=== PATIENT | female | born 1935 | race Caucasian/White ===

== ENCOUNTER → 2022-09-14 | Outpatient (CLI) | payer OTHER ==
[~2022-09-14] MED LIST: CYAN500 PO; ELIQUIS5 MG PO; ERGO400 PO; FAMO40 PO; MULVITA PO; Metoprolol Tart25 MG PO; OXYB5ER PO; TUMS500 MG PO
[2022-09-14 12:21] LABS: Source, Urine Clean Catch
[2022-09-14 17:55] LABS: Appearance, Urine Hazy (Clear); Bilirubin, Urine Neg (Neg); Blood, Urine 1+ (Neg); Color, Urine Yellow (P-Yellow); Glucose Qualitative, Urine Neg (Neg); Ketones, Urine Neg (Neg); Leukocyte Esterase, Urine 3+ (Neg); Nitrite, Urine Neg (Neg); Protein, Urine 2+ (Neg); Urobilinogen, Urine NORM (Normal)
[2022-09-14 18:07] LABS: Bacteria Mod /hpf; Calcium Oxalate Crystals Many /hpf; Squamous Epithelial Cells Few /hpf (Few); Transitional Epithelial Cells Few /hpf (0-Rare); White Blood Cells, Urine TNTC /hpf (0-5)
== END | disposition home or self-care (01) ==
LOC: LAB SHORT 12:19 → LAB 12:19
PROVIDERS: Family Medicine
DX: R82.90 Unspecified abnormal findings in urine (principal)
CPT/HCPCS: 81001; 87086

== ENCOUNTER 2022-09-26 08:44 | Inpatient (IN) | payer OTHER ==
[~2022-09-26] VITALS: Ht 144.8 cm; Wt 50.2 kg
[2022-09-26 09:20] LABS: BASOPHILS ABSOLUTE AUTO 0.05 K/mm3 (0.00-0.23); BASOPHILS PERCENT AUTO 0 % (0-2); EOSINOPHILS ABSOLUTE AUTO 0.02 K/mm3 (0.00-0.68); EOSINOPHILS PERCENT AUTO 0 % (0-6); Hematocrit 37.8 % (33.0-51.0); Hemoglobin 12.3 g/dL (11.5-16.0); IMMATURE GRAN ABSOLUTE AUTO 0.04 K/mm3 (0.00-0.10); IMMATURE GRAN PERCENT AUTO 0 % (0-1); LYMPHOCYTES ABSOLUTE AUTO 0.83 K/mm3 (0.84-5.20); LYMPHOCYTES PERCENT AUTO 7 % (21-46); MONOCYTES ABSOLUTE AUTO 0.98 K/mm3 (0.16-1.47); MONOCYTES PERCENT AUTO 8 % (4-13); Mean Corpuscular HGB 31.6 pg (26.0-34.0); Mean Corpuscular HGB Conc 32.5 g/dL (31.5-36.5); Mean Corpuscular Volume 97 fL (80-100); Mean Platelet Volume 9.9 fL (9.1-12.4); NEUTROPHILS ABSOLUTE AUTO 9.94 K/mm3 (1.96-9.15); NEUTROPHILS PERCENT AUTO 84 % (41-73); Platelet Count 94 K/mm3 (150-400); RDW Standard Deviation 56.2 fL (35.1-46.3); Red Blood Cell Count 3.89 M/mm3 (3.80-5.20); White Blood Cell Count 11.86 K/mm3 (4.00-11.30)
[2022-09-26 09:36] LABS: Albumin, Blood 3.2 g/dL (3.4-5.0); Albumin/Globulin Ratio 0.9 (0.8-1.8); Bilirubin, Total 1.6 mg/dL (0.1-1.0); Bun/Creatinine Ratio 30.6 (12.0-20.0); Calcium, Blood 8.7 mg/dL (8.5-10.1); Creatinine, Blood 1.08 mg/dL (0.40-1.00); Globulin, Blood 3.7 g/dL (2.2-4.0); Potassium, Blood 4.2 mmol/L (3.5-5.5); Total Protein, Blood 6.9 g/dL (6.4-8.2)
[2022-09-26 10:51] LABS: Source, Urine Straight Cath
[2022-09-26 10:57] LABS: Appearance, Urine Hazy (Clear); Bilirubin, Urine Neg (Neg); Blood, Urine 1+ (Neg); Color, Urine Yellow (P-Yellow); Glucose Qualitative, Urine Neg (Neg); Ketones, Urine Neg (Neg); Leukocyte Esterase, Urine Neg (Neg); Nitrite, Urine Pos (Neg); Protein, Urine 3+ (Neg); Specific Gravity, Urine 1.025 (1.003-1.022); Urobilinogen, Urine NORM (Normal)
[2022-09-26 11:03] LABS: Bacteria Mod /hpf; Red Blood Cells, Urine 0-2 /hpf (0-2); Squamous Epithelial Cells Rare /hpf (Few); White Blood Cells, Urine Not Seen /hpf (0-5)
[2022-09-26] MEDS ORDERED: ELIQUIS2.5 MG PO (18:20)
[2022-09-26] MEDS ORDERED: METO25ER PO (18:23)
--- NOTE | 2022-09-26 23:16 | NUR ---
PATIENT HAVING INCREASED CONFUSION. HX DEMENTIA. AXO X2. ON 3L O2 NC PULLS OFF AT TIMES. SOB WITH EXERTION. BED ALARM ACTIVATED.
--- NOTE | 2022-09-27 05:08 | NUR ---
SHIFT SUMMARY PATIENT HAD NO ACUTE CHANGES. AXOX 2-3 WITH CONFUSION. HX OF DEMENTIA. ON 3L O2 NC PULLING OFF AT TIMES. SOB WITH EXERTION. ONE ASSIST WITH FWW TO BSC. PIVS REMAIN INTACT. PO ATIVAN 0.5 MG GIVEN FOR ANXIETY. PATIENT PUSHING CONTROLS ON BED RANDOMLY. RESTLESS IN BED. DENIES PAIN AND N/V. CALLING OUT WHEN NEEDING ASSISTANCE. NOT ABLE TO USE CALL LIGHT AT THIS TIME. BED IN LOWEST POSITION AND ALARM ACTIVATED. WILL CONTINUE TO MONITOR UNTIL DAY SHIFT NURSE ASSUMES CARE.
--- NOTE | 2022-09-27 09:00 | NUR ---
PT PLEASANT COOP A/O TO SELF AND FAMILY. PRESENTS [place]. CONFUSED OVERALL. SHE WAS ATTEMPTING TO TALK ON PHONE TO DAUGHTER. HAVING HARD FOLLOWING DISCUSSION. DROPPED PHONE SEVERAL TIMES. SHE CONTINUES TO TRY TO HOLD PHONE, BUT DROPPED SEVERAL TIMES WEAK OR UNCOORDINATED. H/R REG, NO MURMUR NOTED. NO EDEMA NOTED. LUNGS CLEAR, RESP EASY, UNLABORED. ON 3L O2. BT X4 LAST BM COUPLE DAYS PER PT. VOIDS INCONT AT TIMES. IN ATTENDS , CDI AT THIS TIME. BED IN LOW POSITION, CALL LITE IN REACH, BED ALARM ON FOR SAFETY
[2022-09-27 09:35] LABS: Albumin, Blood 3.2 g/dL (3.4-5.0); Albumin/Globulin Ratio 0.9 (0.8-1.8); BASOPHILS ABSOLUTE AUTO 0.04 K/mm3 (0.00-0.23); BASOPHILS PERCENT AUTO 0 % (0-2); Bilirubin, Total 1.5 mg/dL (0.1-1.0); Bun/Creatinine Ratio 28.8 (12.0-20.0); Calcium, Blood 9.1 mg/dL (8.5-10.1); Creatinine, Blood 1.04 mg/dL (0.40-1.00); EOSINOPHILS ABSOLUTE AUTO 0.03 K/mm3 (0.00-0.68); EOSINOPHILS PERCENT AUTO 0 % (0-6); Globulin, Blood 3.7 g/dL (2.2-4.0); Hematocrit 37.8 % (33.0-51.0); Hemoglobin 12.2 g/dL (11.5-16.0); IMMATURE GRAN ABSOLUTE AUTO 0.04 K/mm3 (0.00-0.10); IMMATURE GRAN PERCENT AUTO 0 % (0-1); LYMPHOCYTES ABSOLUTE AUTO 0.76 K/mm3 (0.84-5.20); LYMPHOCYTES PERCENT AUTO 7 % (21-46); MONOCYTES ABSOLUTE AUTO 1.01 K/mm3 (0.16-1.47); MONOCYTES PERCENT AUTO 9 % (4-13); Mean Corpuscular HGB 31.4 pg (26.0-34.0); Mean Corpuscular HGB Conc 32.3 g/dL (31.5-36.5); Mean Corpuscular Volume 97 fL (80-100); Mean Platelet Volume 9.7 fL (9.1-12.4); NEUTROPHILS ABSOLUTE AUTO 9.75 K/mm3 (1.96-9.15); NEUTROPHILS PERCENT AUTO 84 % (41-73); NRBC ABSOLUTE 0.02 K/mm3 (0.00-0.02); NRBC Auto 0.2 /100 WBC (0.0-0.2); Platelet Count 89 K/mm3 (150-400); Potassium, Blood 4.1 mmol/L (3.5-5.5); RDW Coefficient Variation 15.9 % (11.7-14.2); Red Blood Cell Count 3.89 M/mm3 (3.80-5.20); Total Protein, Blood 6.9 g/dL (6.4-8.2); White Blood Cell Count 11.63 K/mm3 (4.00-11.30)
--- NOTE | 2022-09-27 15:46 | NUR ---
MET WITH PT DAUGHTER, AND SHE THOUGHT HER MOTHER WAS ALREADY ON CONFORT CARE. PROVIDED EDUCATION ON WHAT COMFORT CARE IS AND SHE REPORTS THAT IS WHAT SHE AND THE PATIENT WOULD WANT. TC TO DR FRANCO TO DISCUSS CC IN THIS PT, HE REPORTS FAMILY HAD ASKED PT TO BE ADMITTED FOR TREATMENT WITH OXYGEN AND ANTIBIOTICS WHICH IS WHY THE PT WAS NOT PLACED ON CC UPON ADMISSION. PLAN FOR FOLLOW UP VISIT WITH FAMILY TO MAKE SURE THEY UNDERSTAND WHAT CC IS, AND WOULD POTENTIALLY STOP ALL TREATMENT AND JUST PROVIDE COMFORT MEDICATIONS BEFORE MOVING FORWARD WITH CC ORDERS.
--- NOTE | 2022-09-27 16:46 | NUR ---
Warm hand off from PC RN Jane. Plan to discuss comfort care philosophy when daughter Kathia arrives. Other family member present in room are on board with comfort care. Received call from Pt's Primary RN Gilmar reporting daughter Kathia has arrived. Pt sitting in chair upon arrival and is pleasantly confused. Pt's daughter Kathia and Anh are present. Engaged in therapeutic conversation regarding goals of care. Educated on comfort care philosophy with V/U made by family. Family is in agreement for comfort care. Family would like all maintenance medications D/C. Offered therapeutic listening and answered questions. Family expresses appreciation and report no other concerns at this time. Spoke with Dr Garnica and discussed case. Placed comfort care order, comfort care order set, and D/C maintenance medications per V/O from Dr Garnica. Palliative Care will remain available
--- NOTE | 2022-09-27 18:41 | NUR ---
PT QUITE PLEASANT TODAY. HER DAUGHTER BROUGHT IN HER HEARING AIDES AND HER DENTURES THIS AFTERNOON. DID CHANGE HER TO COMFORT CARE THIS AFTERNOON. NO NEW CONCERNS NOTED. BED IN LOW POSITION, CALL LITE IN REACH. BED ALARM ON FOR SFAETY
--- NOTE | 2022-09-28 04:03 | NUR ---
SHIFT SUMMARY 87 YR F ON COMFORT CARE. PT HAS BEEN RESTLESS AND ANXIOUS FOR MOST OF THIS SHIFT. BREATHING WAS LABORED SO SHE WAS GIVEN ROXINOL 3 TIMES PER EMAR FOR AIR HUNGER. ORDER WAS PUT IN FOR O2 AT 3L FOR PT'S COMFORT. AT APPROX 4 A.M. PT WAS FINALLY ABLE TO FALL ASLEEP.
--- NOTE | 2022-09-28 09:43 | NUR ---
AIR HUNGER PRESENT, ROXINOL 10 MG PO GIVEN. BREATHING WHEEZY, INTERMITTENTLY STOPPING FOR LONG PAUSES. PATIENT DENIES PAIN. DECLINES FOOD AND DRINK AT THIS TIME. STATES COMFORT. OFFERED SPIRITUAL CARE, DECLINED.
--- NOTE | 2022-09-28 13:16 | NUR ---
CASE CONF WITH RN, PT HAS BEEN SLEEPING MOST OF THE DAY. PT HAD A LOT OF AIR HUNGER THROUGH THE NIGHT AND THIS HAS BEEN EASILY MANAGED WITH PO ROXINOL. PT TWO DAUGHTERS IN THE ROOM, PT IS ASLEEP IN BED. PT BREATHING IS EVEN AND UNLABORED, FACE IS REALAXED AND SHE APPEARS TO BE COMFORTABLE. FAMILY WITH CONCERNS ABOUT PT RECEIVED MEALS TRAYS AND THE RISK OF CHOKING. PROVIDED EDUATION TO FAMILY THAT WHEN A PT IS ON COMFORT CARE, THE PT CAN HAVE ANYTHING THEY WISH TO EAT OR DRINK. WHEN IT IS MEAL TIME, STAFF WILL APPROP OFFER THE PT FOOD OR DRINK. THEY HAVE CONCERNS THAT THE PT WILL AGREE TO THIS AND POTENTIALLY CHOKE. FAMILY HAS ASKED THAT THE PT ONLY RECEIVE SOFT FOODS OR LIQUIDS. SPOKE TO RN, UDPATED HER ON PT WISHES AND SHE ASSURES THE FAMILY THAT THEY WILL NOT FEED THE PT UNLESS SHE IS AWAKE AND AGREEABLE. FOLLOW UP WITH JIN KUMAR OFF ON DC PLANNING AT THIS TIME R/T PT SUDDEN DECLINE. FAMILY HAS ASKED TO STAY THE NIGHT WITH THE PT CHIARA Kaur WITH HER SUDEN DECLINE, UPDATED RN AND SHE IS AWARE. PALLIATIVE CARE WILL CONTINUE TO FOLLOW.
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
--- NOTE | 2022-09-28 19:21 | NUR ---
PATIENT ON COMFORT CARE. DAUGHTERS ARE PRESENT AT BEDSIDE. ROXINOL AT 10 MG PO HAS BEEN EFFECTIVE THIS SHIFT TO REDUCE AIR HUNGER AND ANXIETY. PATIENT APPEARS COMFORTABLE SHE IS SLEEPING QUIETLY. FOOD AND BEVERAGE WERE OFFERED AND DECLINED THIS AM WHEN PATIENT WAS MORE AWAKE. MOST OF SHIFT, SHE HAS BEEN ASLEEP. SHE HAS DENIED PAIN AND ISN'T SHOWING SIGNS OF DISCOMFORT AT THIS TIME.
--- NOTE | 2022-09-29 04:33 | NUR ---
SHIFT SUMMARY 87 YR F ON COMFORT CARE. PT APPEARS TO BE MUCH WEAKER TODAY THAN SHE WAS YESTERDAY. SHE HAS MADE NO ATTEMPT TO GET UP AND DOES NOT WANT TO EAT ANYTHING. SHE SLEPT FOR FIRST PART OF THE SHIFT AND AT ABOUT 0100 SHE BEGAN TO HAVE LABORED BREATHING AND AIR HUNGER. ROXINOL WORKS WELL TO EASE THE ANXIETY. SHE HAS HER TWO DAUGHTERS, KAITLIN AND ALISE, AT HER BEDSIDE AND THEY ARE VERY ATTENTIVE TO HER. SHE APPEARS TO ENJOT LISTENING TO THEM TALK AND SHE LAUGHS WITH THEM.
--- NOTE | 2022-09-29 16:42 | NUR ---
SHIFT SUMMARY PT [id number] (SELF) WHEN AWAKE. PT IS ON COMFORT CARE. DROWSY OR SLEEPING MOST OF THIS SHIFT. DAUGHTERS IN ROOM, ASSISTING WITH CARE. PT GIVEN PAIN/ANXIETY MEDS FOR DISCOMFORT AND RESTLESSNESS x2 THIS SHIFT. PT WAS GIVEN BED BATH PER FAMILY'S REQUEST. PT NOT EATING OR DRINKING. PT USING 2L O2 VIA NC. PT IS CURRENTLY RESTING IN BED WITH FAMILY AT BEDSIDE. FAMILY DENIES ANY NEEDS AT THIS TIME.
--- NOTE | 2022-09-30 04:47 | NUR ---
WELDER PIPE MAKING SUMMARY: OCCASIONALLY AWAKE, BUT NOT ALERT. DAUGHTERS AT BEDSIDE. MEDICATED x2 RESTLESSNESS AND AIR HUNGER. SECOND TIME, PRN HALDOL GIVEN, PER DAUGHTER'S REQUEST PT WAS CLENCHING JAW AND FISTS AND SEEMED UNCOMFORTABLE. HAS SLEPT PEACEFULLY REMAINDER OF EVENING. NO ACUTE CONCERNS T/O THE SHIFT. WILL CONTINUE COMFORT CARE.
--- NOTE | 2022-09-30 15:26 | NUR ---
Note Pt resting quietly. Intermittant pause in breathing. Medicated x1 with roxanol/ativan. Daughters at bedside. Pt third daughter is arriving shortly. The two daughters here are really concerned about behaviors. The POA instructed this nurse to provide NO INFORMATION or DO ANY REQUESTS from her. They stated that she has been told about everything already and they don't want her wasting staffs time or creating drama. COntinue POC.
--- NOTE | 2022-10-01 05:23 | NUR ---
SHIFT SUMMARY: PT ON COMFORT MEASURES ONLY. FAMILY IN THE ROOM REQUESTING MEDICATIONS WHEN NEEDED. PT RESTING IN BED COMFORTABLY. WILL COTINUE TO MONITOR AND REPORT TO DAY NURSE.
--- NOTE | 2022-10-02 06:10 | NUR ---
FAMILY AT BEDSIDE REQUESTS THAT VSS AND OTHER CARES BE KEPT TO MINIMUM NECESSARY TO MAINTAIN COMFORT. PT IS NOT RESPONSIVE BUT BREATHING IS STABLE, APPEARS COMFORTABLE. NO PRN MEDS GIVEN THIS SHIFT. OFFERED ASSISTANCE AND ROUNDED ON PATIENT REGULARLY. FAMILY REFUSED VITALS DURING THIS SHIFT.
--- NOTE | 2022-10-02 16:29 | NUR ---
SHIFT SUMMARY NO ACUTE CHANGES DURING THIS SHIFT. PATIENT'S DAUGHTERS NATI AND ALISE PRESENT T/O SHIFT. MEDICATED WITH ATIVAN EARLY IN THE SHIFT. PT GURGLING, REPOSITIONED TO L SIDE AND SCOPOLAMINE PATCH PLACED AT 1645. PT ABLE TO NOD YES/NO TO QUESTIONS ABOUT PAIN OCASSIONALLY T/O SHIFT. PT'S DAUGHTERS ADAMENT ABOUT PT'S WISHES TO NOT BE "DRUGGED" DURING THIS TIME. EDUCATED FAMILY ABOUT PAIN MEDICATIONS AND MAKING PT COMFORTABLE. POA RECEIVED AND PLACED INTO CHART. PATIENT JEANNETTEENLTY RESTING WITH FAMILY PRESENT.
--- NOTE | 2022-10-03 05:43 | NUR ---
NO SIGNIFICANT CHANGES. ROXANOL 20 MG GIVEN X3. STABLE BREATHING. INTERMITTENTLY RESPONSIVE TO VERBAL CUES. APPEARS COMFORTABLE AFTER MEDS. DAUGHTER AT BEDSIDE, PLEASANT AND HELPFUL. INCONTINENT OF URINE.
--- NOTE | 2022-10-03 14:09 | NUR ---
FAMILY IS NOT IN THE ROOM, DAUGHTER WENT HOME TO SHOWER AND REST FOR A LITTLE WHILE. PER BEDSIDE RN, PT WAS MORE ALERT YESTERDAY. PT WAS ABLE TO HAVE MINIMAL INTERACTIONS AND FOLLOW COMMANDS YESTERDAY. TODAY, PT IS UNRESPONSIVE, EYES ARE OPEN BUT ARE NOT TRACKING. PT WITH EVEN AND UNLABORED RESPIRATIONS THROUGH OPEN MOUTH. NO SECRETIONS HEARD OR SEEN. FACE IS RELAXED AND SHE APPEARS TO BE COMFORTABLE. EXTREMITIES ARE PINK, WARM TO THE TOUCH-NO MOTTLING NOTED. EDUCATION PROVIDED TO BEDSIDE RN WITH SIGNS OF ANXIETY, AIR HUNGER AND CHANGES IN CIRCULATION PT BECOMES CLOSER TO END OF LIFE. WILL CONTINUE CHECK ON PT T/O THE DAY. PALLIATIVE CARE WILL CONT TO FOLLOW.
--- NOTE | 2022-10-03 16:30 | NUR ---
SHIFT SUMMARY PATIENT SLEPT T/O SHIFT, UNRESPONSIVE TO STIMULI. BREATHING IS EVEN AND UNLABORED WITH PERIODS OF APNEA. NO MOTTLING. PERIORAL CYANOSIS NOTED. PT HAS HAD A SCOPOLAMINE PATCH ON SINCE YESTERDAY 10/02/22. REPOSITIONED T/O SHIFT. PATIENT'S DAUGHTER IS CURRENLTY NOT WITH THE PATIENT.
--- NOTE | 2022-10-03 16:49 | NUR ---
CC VISIT. PT UNCHANGED, REMAINS UNRESPONSIVE, BREATHING IS EVEN UNLABORED AND FACE IS RELAXED. PT BREATHING HAS SLOWED SLIGHTLY, SKIN IS PINK, WARM AND NO MOTTLING SEEN. PT WITH MINIMAL WET RESPIRATIONS, SCOPOLAMINE PATCH IN PLACE. PALLIATIVE CARE WILL CONT TO FOLLOW.
--- NOTE | 2022-10-04 05:47 | NUR ---
NO PRN MEDS GIVEN, PT APPEARS COMFORTABLE. DAUGHTER AT BEDSIDE. PT INCONTINENT OF URINE, STEADY BREATHING, MILD TACHYPNEA. REPOSITIONED FOR COMFORT. SUPPLEMENTAL O2 FOR COMFORT. UNEVENTFUL NIGHT.
--- NOTE | 2022-10-04 08:30 | NUR ---
PT LAYING SUPINE IN BED WITH DAUGHTER AT THE BEDSIDE. PT UNEVENTFUL NIGHT, REQUIRING MINIMAL MEDICATIONS. PT UNRESPONSIVE, BREATHING IS SLOWER AND DEEPER THAN IT WAS LAST NOC WHEN I ASSESSED THE PT. DAUGHTER IS TEARFUL, BUT COPING WELL. SHE WILL BE TAKING THE PT HOME ON HOSPICE THIS AFTERNOON AND HAS IN HOME CARE GIVERS COMING TO HELP FROM "[facility]. PROVIDED EDUCATION ON HOSPICE AND WHAT SERVICES THEY PROVIDE AND THEY WILL TEACH HER TO MANAGE THE PATIENT AND HER SYMPTOMS AT HOME TO KEEP HER COMFORTABLE UNTIL END OF LIFE. DAUGHTER IS AT [facility] WITH THIS AND IS VERY THANKFUL FOR ALL THE HELP AND SUPPORT SHE HAS RECEIVED WHILE BEING IN THE HOSPITAL. UPDATED STEPHANI KUMAR ON THE ADDITIONAL RESOURCES AVAIABLE TO PT. PALLIATIVE CARE WILL CONTINUE TO SUPPORT.
--- NOTE | 2022-10-04 10:30 | NUR ---
SUPPORTIVE VISIT TO SEE HOW PT IS DOING AND PT DAUGHTER. PT REMAINS UNRESPONSIVE, DAUGHTER IS MAKING PLANS ON THE PHONE TO TAKE HER MOTHER HOME. PT BREATHING HAS BECOME MORE RAPID, BUT SHALLOW. SUGGESTED TO DAUGHTER THAT HER MOTHER MAY NEED SOME ROXINOL AND SHE AGREES. WILL ASK THE RN TO MEDICATE THE PT. PROVIDED EMOTIONAL SUPPORT, DAUGHTER IS DOING OK. PT IS TO BE DC TODAY AT NOON TO GO HOME ON HOSPICE.
--- NOTE | 2022-10-04 12:14 | NUR ---
DISCHARGE NOTE- PT WAS GIVEN ROXANOL IN PREPARATION FOR TRANSPORT HOME PER FAMILY AND PALLIATIVE CARE RN REQUEST, PT WAS EXHIBITING MODERATE AIR HUNGER AT THE TIME OF MEDICATION. RESP E/U AT THE TIME OF DISCHARGE EDUCATION WITH THE PT DAUGHTER. DAUGHTER WENT HOME AHEAD OF DISCHARGE TO BE THERE WHEN THE PT ARRIVES. PT HAD A PAUSE IN RESPIRATIONS WHEN SHE WAS TRANSFERED TO THE [facility], RESP RESUMED E/U AFTER REPOSITIONING. PT ATTENDS WERE CHANGED PRIOR TO DISCHARGE AND [facility] PROVIDED. PT WAS TAKEN VIA [facility] TRANSPORT HOME TO BE ADMITTED TO HOSPICE. PT UNRESPONSIVE AT THE TIME OF DISCHARGE.
== END 2022-10-04 12:10 | disposition hospice, home (50) | DRG 177 ==
LOC: ER 08:44 → MEDS 08:45
PROVIDERS: Student in an Organized Health Care Education/Training Program; ADMIT Internal Medicine
DX: J69.0 Pneumonitis due to inhalation of food and vomit (principal); J96.01 Acute respiratory failure with hypoxia; F03.90 Unspecified dementia, unspecified severity, without behavioral disturbance, psychotic disturbance, mood disturbance, and anxiety; R13.10 Dysphagia, unspecified; Z51.5 Encounter for palliative care; Z66 Do not resuscitate; I48.91 Unspecified atrial fibrillation; K21.9 Gastro-esophageal reflux disease without esophagitis; R77.8 Other specified abnormalities of plasma proteins; N32.81 Overactive bladder; Z95.2 Presence of prosthetic heart valve; Z98.890 Other specified postprocedural states; Z88.0 Allergy status to penicillin; Z86.73 Personal history of transient ischemic attack (TIA), and cerebral infarction without residual deficits; Z86.79 Personal history of other diseases of the circulatory system; Z79.899 Other long term (current) drug therapy; Z79.01 Long term (current) use of anticoagulants
CPT/HCPCS: 36415; 51701; 70450; 71046; 80053; 81001; 83605; 84484; 85025; 87040; 87086; 93005; 93010; 94640; 94664; 94760; 96365-59; 96366-59; 99285-25; A9270; G0378; J1956